=== PATIENT | female | born 1955 | race Caucasian/White ===

== ENCOUNTER 2020-06-11 10:37 | Emergency (ER) | payer BC ==
[2020-06-11 10:53] VITALS: BP 143/93; PULSE 84
--- NOTE | 2020-06-11 11:16 | EDM.PDOC ---
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 She has had nausea and vomiting with it and unable to eat or drink and retain anything. She has no GI history other than a similar episode in April very similar to this except for the fatigue and respond did without treatment in about 1-1/2 days. This problem however is been about 3 days and she was concerned No GI history of irritable bowel. No antibiotics taken. No abdominal pain noted. Urine is diminished because she has less intake She has generally a healthy person Duration: Day(s): Improves with: Reports: None Worsens with: Reports: None Associated Symptoms: Reports: Loss of Appetite, Nausea/Vomiting - Related Data Allergies Allergy/AdvReac Type Severity Reaction Status Date / Time adhesive tape Allergy Cannot Verified 06/11/20 10:53 Remember corn Allergy Cannot Verified 06/11/20 10:53 Remember egg Allergy Cannot Verified 06/11/20 10:53 Remember gluten Allergy Cannot Verified 06/11/20 10:53 Remember milk Allergy Cannot Verified 06/11/20 10:53 Remember Home Meds: Home Meds Adrenal Support 2 tab PO BID 07/06/16 [History] Anastrozole [Arimidex] 1 mg PO DAILY 07/06/16 [History] Cranberry 400 mg PO DAILY 07/06/16 [History] Fexofenadine [Shanna] 180 mg PO DAILY 07/06/16 [History] Fluticasone Propionate [Flonase] 1 spray NS DAILY 07/06/16 [History] Gabapentin [Neurontin] 600 mg PO QID 07/06/16 [History] Multivit-Min/Iron Fum/Folic AC [Yemrg-Csuaejo-Wbinrqrb Tablet] 1 each PO DAILY 07/06/16 [History] Sacro-B 1 tab PO DAILY 07/06/16 [History] Vitamin B Complex [B Complex] 1 each PO DAILY 07/06/16 [History] Vitamin E 1,000 units PO DAILY 07/06/16 [History] Ezetimibe 10 mg PO DAILY 06/11/20 [History] Omeprazole 20 mg PO DAILY 06/11/20 [History] Ondansetron [Zofran ODT] 4 mg PO Q6H PRN #10 tab.dis 06/11/20 [Rx] Past Medical History Gastrointestinal History: Reports: GERD Genitourinary History: Reports: 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: Musculoskeletal History: Reports: Back Pain, Chronic Neurological History: Reports: None Oncologic (Cancer) History: Reports: Basal Cell Carcinoma, Breast Dermatologic History: Reports: Other (See Below) Other Dermatologic History: basal cell on face - Past Surgical History GI Surgical History: Reports: Cholecystectomy, Colonoscopy, EGD Female Surgical History: Reports: Breast Biopsy, Mastectomy Neurological Surgical History: Reports: Lumbar Spine Oncologic Surgical History: Reports: Biopsy of Breast, Mastectomy Dermatological Surgical History: Reports: Skin Biopsy Social & Family History - Caffeine Use Caffeine Use: Reports: Coffee, Soda ED ROS GENERAL - Review of Systems Review Of Systems: See Below Constitutional: Reports: Decreased Appetite HEENT: Reports: No Symptoms Respiratory: Reports: Shortness of Breath Cardiovascular: Reports: Dyspnea on Exertion Endocrine: Reports: Fatigue GI/Abdominal: Reports: Diarrhea, Decreased Appetite, Vomiting : Reports: No Symptoms Musculoskeletal: Reports: No Symptoms Skin: Reports: No Symptoms Neurological: Reports: No Symptoms Psychiatric: Reports: No Symptoms Hematologic/Lymphatic: Reports: No Symptoms Immunologic: Reports: No Symptoms ED EXAM, GENERAL - Physical Exam Exam: See Below Free Text/Narrative:: Patient is an alert cooperative female with normal vital signs on my review and while I am in the room. Head exam appears to be normal with a moist mouth noted. No facial droop Her neck is supple, chest clear regular rate and rhythm, abdomen soft active bowel sounds nontender. Skin extremities appear to be normal with the exception of a missing right breast from prior surgery Exam Limited By: No Limitations General Appearance: Mild Distress Ears: Normal External Exam Nose: Normal Inspection Throat/Mouth: Normal Inspection Head: Atraumatic, Normocephalic Neck: Normal Inspection, Supple Respiratory/Chest: No Respiratory Distress, Lungs Clear, Normal Breath Sounds Cardiovascular: Regular Rate, Rhythm, No Edema, No Murmur GI/Abdominal: Normal Bowel Sounds, Soft, Non-Tender, No Mass Back Exam: Normal Inspection Extremities: Normal Inspection, Non-Tender, No Pedal Edema Neurological: Alert, Oriented, Normal Cognition, No Motor/Sensory Deficits Psychiatric: Normal Affect, Normal Mood Skin Exam: Warm, Dry Course - Vital Signs Text/Narrative:: 64-year-old female in good health until about 3 days ago she developed fatigue and some dyspnea on exertion after shooting a deer and developing diarrhea which has been persistent now for 3 days versus a 1-1/2-day self-limited course back in April Plan will be some laboratory work, C. difficile and enteric pathogen test and saline rehydration and reevaluation 1:06 PM. Patient has a potassium of about 3.2 and therefore is given oral supplemental potassium as she has no further nausea or vomiting here in the department. Also given 20 mEq and a liter saline. Abdominal film read as negative by the radiologist. Cardiogram is no acute changes. She does have ketones suggesting dehydration in the urine. She has a positive Covid test Patient has 1 loose stool while in the department She is nauseous just prior to discharge and is given Zofran here and a prescription for Zofran to go. She will return if she gets significant changes in difficulty breathing or other symptoms. Advised her that he needs to self quarantine for 14 days as well Last Recorded V/S: Last Vital Signs Temp 36.6 C 06/11/20 10:52 Pulse 84 06/11/20 10:52 Resp 20 06/11/20 10:52 BP 143/93 H 06/11/20 10:52 Pulse Ox 96 06/11/20 10:52 - Orders/Labs/Meds Labs: Laboratory Tests 06/11/20 06/11/20 06/11/20 Range/Units 11:55 12:04 12:04 WBC 6.2 (4.5-11.0) K/uL RBC 5.13 (3.30-5.50) M/uL Hgb 14.3 (12.0-15.0) g/dL Hct 43.9 (36.0-48.0) % MCV 86 (80-98) fL MCH 28 (27-31) pg MCHC 33 (32-36) % Plt Count 244 (150-400) K/uL Sodium 145 (140-148) mmol/L Potassium 3.2 L (3.6-5.2) mmol/L Chloride 106 (100-108) mmol/L Carbon Dioxide 25 (21-32) mmol/L Anion Gap 17.2 H (5.0-14.0) mmol/L BUN 17 (7-18) mg/dL Creatinine 0.7 (0.6-1.0) mg/dL Est Cr Clr Drug Dosing 70.11 mL/min Estimated GFR (MDRD) > 60 (>60) Glucose 95 (74-106) mg/dL Calcium 8.5 (8.5-10.1) mg/dL Total Bilirubin 0.9 (0.2-1.0) mg/dL AST 71 H (15-37) U/L ALT 112 H (12-78) U/L Alkaline Phosphatase 77 (46-116) U/L C-Reactive Protein 0.52 H (0.0-0.3) mg/dL Total Protein 7.7 (6.4-8.2) g/dL Albumin 3.7 (3.4-5.0) g/dL Globulin 4.0 H (2.3-3.5) g/dL Albumin/Globulin Ratio 0.9 L (1.2-2.2) Urine Color (YELLOW) Urine Appearance (CLEAR) Urine pH (5.0-8.0) Ur Specific [place] (1.008-1.030) Urine Protein (NEGATIVE) mg/dL Urine Glucose (UA) (NEGATIVE) mg/dL Urine Ketones (NEGATIVE) mg/dL Urine Occult Blood (NEGATIVE) Urine Nitrite (NEGATIVE) Urine Bilirubin (NEGATIVE) Urine Urobilinogen (0.2-1.0) EU/dL Ur Leukocyte Esterase (NEGATIVE) Urine RBC (0-5) Urine WBC (0-5) Ur Epithelial Cells Amorphous Sediment Urine Bacteria Urine Mucus Enterovirus RNA RT-PCR (Negative) SARS-CoV-2 RNA (YARIEL) Positive H (NEGATIVE) 06/11/20 06/11/20 Range/Units 12:13 12:24 WBC (4.5-11.0) K/uL RBC (3.30-5.50) M/uL Hgb (12.0-15.0) g/dL Hct (36.0-48.0) % MCV (80-98) fL MCH (27-31) pg MCHC (32-36) % Plt Count (150-400) K/uL Sodium (140-148) mmol/L Potassium (3.6-5.2) mmol/L Chloride (100-108) mmol/L Carbon Dioxide (21-32) mmol/L Anion Gap (5.0-14.0) mmol/L BUN (7-18) mg/dL Creatinine (0.6-1.0) mg/dL Est Cr Clr Drug Dosing mL/min Estimated GFR (MDRD) (>60) Glucose (74-106) mg/dL Calcium (8.5-10.1) mg/dL Total Bilirubin (0.2-1.0) mg/dL AST (15-37) U/L ALT (12-78) U/L Alkaline Phosphatase (46-116) U/L C-Reactive Protein (0.0-0.3) mg/dL Total Protein (6.4-8.2) g/dL Albumin (3.4-5.0) g/dL Globulin (2.3-3.5) g/dL Albumin/Globulin Ratio (1.2-2.2) Urine Color Yellow (YELLOW) Urine Appearance Slightly cloudy A (CLEAR) Urine pH 6.0 (5.0-8.0) Ur Specific [place] >= 1.030 (1.008-1.030) Urine Protein 100 H (NEGATIVE) mg/dL Urine Glucose (UA) Negative (NEGATIVE) mg/dL Urine Ketones >=160 H (NEGATIVE) mg/dL Urine Occult Blood Trace-intact H (NEGATIVE) Urine Nitrite Negative (NEGATIVE) Urine Bilirubin Moderate H (NEGATIVE) Urine Urobilinogen 0.2 (0.2-1.0) EU/dL Ur Leukocyte Esterase Trace H (NEGATIVE) Urine RBC 0-5 (0-5) Urine WBC 20-30 H (0-5) Ur Epithelial Cells Many Amorphous Sediment Not seen Urine Bacteria Moderate Urine Mucus Many Enterovirus RNA RT-PCR Negative (Negative) SARS-CoV-2 RNA (YARIEL) (NEGATIVE) Meds: Medications Discontinued Medications Generic Name Dose Route Start Last Admin Trade Name Freq PRN Reason Stop Dose Admin Sodium Chloride 1,000 mls @ 1,000 mls/hr 06/11/20 11:45 06/11/20 12:25 Normal Saline IV 1,000 mls/hr ASDIRECTED FRANCES Administration Sodium Chloride 1,000 mls @ 1,000 mls/hr 06/11/20 12:45 06/11/20 14:30 Normal Saline IV 06/11/20 13:44 Not Given .BOLUS ONE Potassium Chloride/Sodium Chloride 1,000 mls @ 1,000 mls/hr 06/11/20 13:00 06/11/20 13:10 Normal Saline With 20 Meq Kcl IV 1,000 mls/hr ASDIRECTED FRANCES Administration Ondansetron HCl 4 mg 06/11/20 15:20 06/11/20 15:47 Zofran Odt PO 06/11/20 15:21 4 mg ONETIME ONE Administration Potassium Chloride 20 meq 06/11/20 12:50 06/11/20 13:10 Klor-Con M20 PO 06/11/20 12:51 20 meq ONETIME ONE Administration Departure - Departure Time of Disposition: 16:36 Disposition: Home, Self-Care 01 Clinical Impression: COVID-19 virus detected - Discharge Information Prescriptions: Ondansetron [Zofran ODT] 4 mg PO Q6H PRN #10 tab.dis PRN Reason: Nausea/Vomiting Instructions: COVID-19, Prevent the Spread of COVID-19 if You Are Sick - [facility] Referrals: Sandra Perkins PA [Primary Care Provider] - Forms: ED Department Discharge Sepsis Event Note (ED) - Evaluation Sepsis Screening Result: No Definite Risk
[2020-06-11] MEDS ORDERED: Sodium Chloride 0.9% 1,000 ML IV SCH (11:45)
[2020-06-11] MEDS ORDERED: Sodium Chloride 0.9% 1,000 ML IV ONE (12:45)
[2020-06-11] MEDS ORDERED: Potassium Chloride 20 MEQ Tab.ER PO ONE (12:50)
--- NOTE | 2020-06-11 12:57 | CR ---
Abdomen 1V Flat CLINICAL HISTORY: Diarrhea, fatigue FINDINGS: Small intestinal gas pattern is nonacute. There is some gas and feces in the colon. IMPRESSION: Nonacute intestinal gas pattern
[2020-06-11] MEDS ORDERED: NS + KCl 20mEq/L 1,000 ML IV SCH (13:00)
[2020-06-11] MEDS ORDERED: Ondansetron 4 MG Tab.DIS PO ONE (15:20)
== END 2020-06-11 16:36 | disposition home or self-care (01) ==
LOC: JP.ED 10:37
DX: U07.1 COVID-19 (principal); K21.9 Gastro-esophageal reflux disease without esophagitis; Z91.048 Other nonmedicinal substance allergy status; Z91.018 Allergy to other foods; Z91.012 Allergy to eggs; Z91.011 Allergy to milk products
CPT/HCPCS: 36415; 74018; 80053; 81001; 85027; 86140; 87493; 87498; 87635; 93005; 93010; 96365; 99285; A9270; J3480; J7030; 99283; U0002